=== PATIENT | male | born 1980 | race Two or more races ===

== ENCOUNTER 2024-05-11 15:05 | Emergency (ER) | payer MEDICAID, OTHER ==
[~2024-05-11] VITALS: Ht 160 cm; Wt 68.0 kg
[2024-05-11 15:21] VITALS: BP 129/70; TEMP 98.4; O2SAT 98
[2024-05-11] MEDS ORDERED: CEPH-570 PO (15:45)
== END 2024-05-11 16:18 | disposition home or self-care (01) ==
LOC: ER 15:13
DX: L03.114 Cellulitis of left upper limb (principal)